=== PATIENT | female | born 1985 | race Hispanic/Latino ===

== ENCOUNTER 2017-07-28 00:17 | Inpatient (IN) | payer OTHER ==
[2017-07-28] VITALS (15 sets, daily range): BP systolic 104–132; BP diastolic 42–85
[~2017-07-28] VITALS: Ht 142.2 cm; Wt 77.1 kg
--- NOTE | 2017-07-28 00:31 | NUR ---
ARRIVAL TO OB UNIT. ORIENTED TO ROOM AND CALL SYSTEM
--- NOTE | 2017-07-28 01:00 | NUR ---
COMES TO UNIT FOR REPEAT C - SECTION IN AM FOR DR. TERRAZAS. IV STARTED PER DARRYN MATTA RN. SEE IV CHARTING. MONITOR APPLIED. FHT'S BASING 130'S. PT K[place] EVERY 4 MINUTES LASTING 90-100 SECONDS. PALPATE MODERATE BY THIS RN. PT STATES SHE IS FEELING THEM SLIGHTLY. STATES CONTRACTIONS STARTED YESTERDAY. REACTIVE STRIP.
[2017-07-28 01:12] LABS: URINE BILIRUBIN - DIPSTICK NEGATIVE (NEGATIVE); URINE BLOOD DIPSTICK NEGATIVE (NEGATIVE); URINE CLARITY CLOUDY; URINE COLOR YELLOW; URINE GLUCOSE - DIPSTICK NEGATIVE (NEGATIVE); URINE KETONE 40 mg/dL (NEGATIVE); URINE LEUK ESTERASE NEGATIVE (NEGATIVE); URINE NITRITE - DIPSTICK NEGATIVE (Negative); URINE PROTEIN - DIPSTICK NEGATIVE (NEG-TRACE); URINE SPECIFIC GRAVITY >=1.030; URINE UROBILINOGEN - DIPSTICK 0.2 E.U./dL (0.2)
[2017-07-28 01:17] LABS: HEMATOCRIT 39.4 % (37.0-47.0); HEMOGLOBIN 13.2 g/dl (12.0-16.0); IMMATURE GRANULOCYTES 0.5 % (0.0-1.0); MEAN CELL VOLUME 79.9 fL CALC (80.0-100.0); MEAN CORPUSCULAR HGB 26.8 pG CALC (26.0-32.0); MEAN CORPUSCULAR HGB CONC 33.5 g/L CALC (32.0-36.0); NEUT# 5.82 thou/uL (2.00-7.15); RED BLOOD COUNT 4.93 mill/uL (4.20-5.60); RED CELL DISTRI WIDTH 14.7 % (11.5-15.5)
[2017-07-28 01:18] LABS: BARBITURATES NEGATIVE (NEGATIVE); COCAINE NEGATIVE (NEGATIVE); METHADONE NEGATIVE (NEGATIVE); OXCYCODONE NEGATIVE (NEGATIVE); TETRAHYDROCANNABIONOL NEGATIVE (NEGATIVE); TRICYLIC ANTIDEPRESSANTS NEGATIVE (NEGATIVE)
[2017-07-28 01:30] LABS: ALBUMIN 3.6 g/dL (3.2-5.0); ALKALINE PHOSPHATASE 169 u/l (38-126); ANION GAP 13 (6-22 (CALC)); BILIRUBIN, TOTAL 0.5 mg/dL (0.0-1.4); BUN 11 mg/dL (7-17); BUN/CREATININE RATIO 26 (12-20 (CALC)); CALCIUM 9.5 mg/dL (8.4-10.2); CARBON DIOXIDE 17 mmol/l (22-30); CHLORIDE 110 mmol/l (95-108); CREATININE 0.4 mg/dL (0.5-1.0); GFR > 60 ML/MIN (>=60 (CALC)); GFR FOR AFR.AMER. > 60 ML/MIN (>=60 (CALC)); GLUCOSE 73 mg/dL (65-105); SGOT/AST 23 u/l (14-36); SGPT/ALT 35 u/l (9-52); SODIUM 137 mmol/l (137-146); TOTAL PROTEIN 6.6 g/dL (6.3-8.2)
--- NOTE | 2017-07-28 02:00 | NUR ---
MAI GARIBAY HOTEL ASSISTANT MANAGER HERE TO TRANSLATE. IV BOLUS INFUSED. LR ON MED PUMP AT 125CC/HOUR ORDERED. CONTRACTIONS SPACED OUT FROM 5 - 7 MINUTES LASTING 40-60 SECONDS. BABY ACTIVE AND DIFFICULT TO KEEP TRACING ON STRIP. WILL MONITOR CONTRACTIONS. USES RESTROOM AND VOIDS 100CC TURBID URINE.
--- NOTE | 2017-07-28 02:10 | NUR ---
SVE PERFORMED DUE TO FREQUENCY OF CONTRACTIONS. EXAM INDICATES CLOSED CERVIX, THICK CERVIX AND BLOTABLE PRESENTING PART.
[2017-07-28] MEDS ORDERED: PRE-NATAL PO (02:38)
--- NOTE | 2017-07-28 03:44 | NUR ---
NO CONTRACTIONS NOTED ON MONITOR STRIP. PT RESTING WITH EYES CLOSED. SLEEPING AT BEDSIDE.
--- NOTE | 2017-07-28 04:47 | NUR ---
PT UP TO BATHROOM ON HER OWN. STATES NO DIZZINESS/WEAKNESS. VSS CHARTED. CALL LIGHT IN REACH. S/O ASLEEP AT BEDSIDE, IN NURSERY. DENIES ANY NEEDS AT THIS TIME.
--- NOTE | 2017-07-28 06:01 | NUR ---
NO CONTRACTIONS NOTED. PT SLEEPING. IV INFUSING PER MED PUMP.
--- NOTE | 2017-07-28 06:30 | NUR ---
PT PUT ON MONITOR. NO CONTRACTIONS NOTED. STATES FETUS ACTIVE. VOIDS 400CC CLEAR, YELLOW URINE. VS STABLE. SHAVE PREPPED LOWER ABDOMEN. READY FOR SURGERY.
--- NOTE | 2017-07-28 07:00 | NUR ---
REPORT GIVEN TO HILARIO TAYLOR RN ON PT STATUS.
--- NOTE | 2017-07-28 07:03 | NUR ---
ROUTINE PREOP MEDS GIVEN.
--- NOTE | 2017-07-28 07:12 | NUR ---
EFM OFF IN PREPARATION TO GO TO OR, NST REACTIVE.
--- NOTE | 2017-07-28 07:35 | NUR ---
PT UP TO VOID, THEN TO OR WITH OR CREW.
--- NOTE | 2017-07-28 10:20 | NUR ---
PT BACK FROM RECOVERY, TRANSFER TO BED VIA EZ SLIDE. IVF RUNNING WITHOUT PROBLEMS, LOW TRANSVERSE ABDOMINAL DRESSING IS CLEAN, DRY AND INTACT. FF @ U WITH LIGHT LOCHIA. SY DRAINING CLEAR YELLOW URINE. SCDS IN PLACE AND ON. POST OP AND TEACHING DONE WITH PT AND SIGNIFICANT OTHER, BOTH VERBALIZED UNDERSTANDING. SEE FUNDAL CHECKS FOR FURTHER DOCUMENTATION. PT DENIES ANY PAIN OR NEEDS AT THIS TIME.
--- NOTE | 2017-07-28 12:10 | NUR ---
PT RESTING IN BED, HOLDING , POSITIVE BONDING. STABLE, DENIES ANY PAIN. SIGNIFICANT OTHER AT BEDSIDE.
--- NOTE | 2017-07-28 13:00 | NUR ---
MEDICATED WITH NUBAIN FOR ITCHING AT THIS TIME. DENIES ANY PAIN OR OTHER NEEDS.
--- NOTE | 2017-07-28 14:15 | NUR ---
PT RESTING, RATES PAIN 4/10, BUT DECLINES PAIN MEDICATION, STATES ITCHING IS BETTER. DENIES ANY NEEDS.
--- NOTE | 2017-07-28 15:58 | NUR ---
MEDICATED WITH TORADOL FOR PAIN. DENIES ANY OTHER NEEDS.
--- NOTE | 2017-07-28 16:30 | NUR ---
SY REMOVED, PT ASSISTED TO BATHROOM, VOIDED 200ML, PERICARE DONE, PANTIES/PADS PLACED, GOWN CHANGED. PT THEN AMBULATED TO NURSERY TO SEE INFANT BEING BATHED, THEN BACK TO CHAIR. TOLERATED ACTIVITY WELL. SIGNIFICANT OTHER REMAINS AT BEDSIDE. PT USING IS CORRECTLY, UP TO 1500.
--- NOTE | 2017-07-28 17:15 | NUR ---
PT SITTING UP IN RECLINER, VS DONE, STABLE. RATES PAIN 2/10. DENIES ANY NEEDS.
--- NOTE | 2017-07-28 18:57 | NUR ---
REPORT RECEIVED FROM HILARIO TAYLOR RN ON PT STATUS. PT SITTING IN BED VISITING WITH FRIENDS. STATES HAS NO PAIN.
--- NOTE | 2017-07-28 20:15 | NUR ---
PT RESTING IN BED. HAS VISITORS. NO COMPLAINTS OF PAIN. IV INFUSING PER MED PUMP AT 125CC/HR. HAS NO QUESTIONS OR CONCERNS. BED IN LOW POSITION AND CALL LIGHT WITHIN REACH.
--- NOTE | 2017-07-28 21:20 | NUR ---
IV SALINE LOCKED. LAST ANTIBIOTIC GIVEN EARLIER. PT COMPLAINS OF SOME PAIN AT IV SITE. SLIGHT EDEMA NOTED. NO REDNESS NOTED. INFORMED PT THAT LABS WILL BE DRAWN IN AM AND THEN IV CATHETER CAN BE REMOVED.
--- NOTE | 2017-07-29 00:10 | NUR ---
PT AWAKE AND HOLDING . MOTHER HAS NO CONCERNS OR QUESTIONS. DENIES PAIN OR DISCOMFORT. BED IN LOW POSITION AND CALL LIGHT WITHIN REACH. SLEEPING BEDSIDE.
[2017-07-29 04:10] VITALS: BP 121/75
--- NOTE | 2017-07-29 04:25 | NUR ---
PT SLEEPING. IN NURSERY. BED IN LOW POSITION, CALL LIGHT WITHIN REACH. NO SIGNS OF DISTRESS.
--- NOTE | 2017-07-29 05:17 | NUR ---
Pt asleep without distress, baby in room in crib.
--- NOTE | 2017-07-29 06:20 | NUR ---
PT TAKES SHOWER. GAIT IS STEADY AND EVEN. DENIES ANY DIZZINESS. INSTRUCTED TO TAKE OFF DRESSING WHEN IT GETS SATURATED. PT VOICES UNDERSTANDING.
[2017-07-29 06:34] LABS: HEMATOCRIT 32.4 % (37.0-47.0); HEMOGLOBIN 10.7 g/dl (12.0-16.0); IMMATURE GRANULOCYTES 0.4 % (0.0-1.0); MEAN CORPUSCULAR HGB 26.8 pG CALC (26.0-32.0); NEUT# 6.29 thou/uL (2.00-7.15); RED CELL DISTRI WIDTH 14.7 % (11.5-15.5)
--- NOTE | 2017-07-29 06:54 | NUR ---
REPORT GIVEN TO MAGALY TAY RN ON PT STATUS.
--- NOTE | 2017-07-29 07:00 | NUR ---
Received care of pt. Pt out of shower with complaint of pain. Toradol IV given. Plan of care reviewed. Pt with complaint of itching all over body. Benadryl PO given. Encouraged to ambulate and drink plenty fluids. Denies s/s of depression. Significant other at bedside. Call light within reach.
[2017-07-29 07:30] VITALS: BP 114/73
--- NOTE | 2017-07-29 07:30 | NUR ---
Vital signs obtained. Assessment completed as charted. Pt using incentive spirometer while awake. No s/s of increased somnolence or respiratory distress. Dressing removed in bed. Steri strips in place. Incision care reviewed.Call light within reach.
--- NOTE | 2017-07-29 08:00 | NUR ---
Discharge planning reviewed. Pt with no questions or concerns at this time. Pt feeling sleepy. Infant placed in open crib. Call light within reach.
--- NOTE | 2017-07-29 09:00 | NUR ---
DR TERRAZAS IN TO SEE PT, NO NEW ORDERS AT THIS TIME. IV DISCONTINUED, CATHETER INTACT. SITE WNL.
--- NOTE | 2017-07-29 12:32 | NUR ---
PT SITTING UP IN CHAIR AT BEDSIDE. ENCOURAGED TO AMBULATE. INSTRUCTED NOT TO CROSS LEGS. LINENS CHANGED. PT DENIES PAIN MEDICATION. CALL LIGHT WITHIN REACH.
--- NOTE | 2017-07-29 15:00 | NUR ---
PT VIEWED ALL DISCHARGE VIDEOS, PT WITH NO QUESTIONS.
[2017-07-29 16:00] VITALS: BP 103/63
--- NOTE | 2017-07-29 18:37 | NUR ---
SITTING UP IN CHAIR WITH NO COMPLAINTS. REPORT GIVEN TO ONCOMING SHIFT.
[2017-07-29 18:58] VITALS: BP 104/64
--- NOTE | 2017-07-29 18:58 | NUR ---
1840:REPORT RECEIVED BY LORENA BESS. 1858: PT IS SITTING IN CHAIR. ASSESSMENT DONE, VS AND WNL. PT STATED PAIN IS 4/10. PAIN MEDICATION GIVEN SEE EMAR. PT STATED SHE HAD A SMALL BM AND HAS PASS SOME GAS. ENCOURAGE PT TO AMBULATE IN THE HALLWAY . PT VERBALIZED UNDERSTANDING. PT DENIES ANY OTHER NEEDS AT THIS TIME.
--- NOTE | 2017-07-29 19:20 | NUR ---
PT AMBULATED IN THE HALLWAY HOLDING TO CRIB. IN OPEN CRIB. PT STATED SHE DID NOT FEEL DIZZY.
--- NOTE | 2017-07-29 22:15 | NUR ---
PT IS SITTING IN CHAIR. NO S/S OF DISTRESS NOTED ON PT. PT DENIES ANY NEEDS AT THIS TIME. PT STATED THAT SHE HAS BEEN AMBULATING IN ROOM.
[2017-07-30 01:35] VITALS: BP 115/75
--- NOTE | 2017-07-30 01:55 | NUR ---
0135:PT STATED THAT SHE HAS CHEST PRESSURE AND HAS NOT PASS GAS RECENTLY. PT VOIDED. VS DONE AND WNL CHARTED. EXPLAINED TO PT THE IMPORTANCE OF AMBULATING. PT VERBALIZED UNDERSTANDING. 0137: PT AMBULATING IN THE HALLWAYS WITH A STEADY GAIT. 0155: PT BACK IN HER ROOM. PT STATED THAT SHE DOES NOT FEEL THAT PRESSURE IN HER CHEST ANY MORE. EXPLAIN TO PT TO LET ME KNOW IF SHE FEEL IT AGAIN. PT VERBALIZED UNDERSTANDING. PT DENIES ANY OTHER NEEDS AT THIS TIME.
--- NOTE | 2017-07-30 03:13 | NUR ---
0243: PT STATED THAT SHE HAS THAT CHEST PRESSURE AGAIN. PAIN MEDICATION GIVEN SEE EMAR. 0313: PT STATED THAT THE PRESSURE IS LESS AND IS FEELING BETTER. PT STATED THAT SHE IS GOING TO TRY TO SLEEP. PT DENIES ANY OTHER NEEDS AT THIS TIME.
--- NOTE | 2017-07-30 05:35 | NUR ---
PT IS RESTING IN BED WITH NO S/S DISTRESS NOTED. PT DENIES ANY NEEDS AT THIS TIME. REPORT READY FOR ONCOMING SHIFT.
--- NOTE | 2017-07-30 07:30 | NUR ---
PT UP AND AMBULATING IN THE ROOM, EATING BREAKFAST. DENIES ANY NEEDS AT THIS TIME.
[2017-07-30 08:34] VITALS: BP 102/65
--- NOTE | 2017-07-30 08:34 | NUR ---
PT SITTING UP IN THE CHAIR, VS AND ASSESSMENT DONE, STABLE, DENIES ANY PAIN. DISCUSSED PLAN OF CARE WITH PT, PT VERBALIZED UNDERSTANDING AND DENIES ANY NEEDS.
[2017-07-30] MEDS ORDERED: IBUPROFEN600 MG PO (09:59)
[2017-07-30] MEDS ORDERED: LORTAB 7.57.5 MG PO (09:59)
--- NOTE | 2017-07-30 10:19 | NUR ---
REINFORCED DISCHARGE INSTRUCTIONS WITH PT. RX FOR MOTRIN AND LORTAB GIVEN. INSTRUCTED ABOUT MEDICATIONS AND WHEN TO TAKE THEM. PT VERBALIZED UNDERSTANDING. TDAP AND FLU VACCINES GIVEN WELL.
== END 2017-07-30 14:10 | disposition home or self-care (01) | DRG 766 ==
LOC: OB 00:17
PROVIDERS: ADMIT Obstetrics & Gynecology; ATTEND Obstetrics & Gynecology
PROC: 10D00Z1 Extraction of Products of Conception, Low, Open Approach (ICD-10-PCS; principal; 2017-07-28)
DX: O34.211 Maternal care for low transverse scar from previous cesarean delivery (principal); N85.8 Other specified noninflammatory disorders of uterus; O32.8XX0 Maternal care for other malpresentation of fetus, not applicable or unspecified; Z3A.39 39 weeks gestation of pregnancy; Z37.0 Single live birth